=== PATIENT | male | born 1955 | race Caucasian/White ===

== ENCOUNTER 2017-01-18 18:43 | Emergency (ER) | payer OTHER ==
[~2017-01-18] VITALS: Ht 182.9 cm; Wt 110.0 kg
[~2017-01-18 18:43] MED LIST: LIPI10TA PO; PERC5TAB12 PO; TAMS0.4C67 PO
[2017-01-18 18:47] VITALS: BP 155/65; PULSE 85; RESP 16; TEMP 98.2; O2SAT 99
--- NOTE | 2017-01-18 18:56 | PD ---
HPI Chief Complaint: Laceration/Skin Injury Time Seen by Provider: 18:54 Travel History International Travel<30 days: No Contact w/Intl Traveler<30days: No Traveled to known affect area: No History of Present Illness HPI 61-year-old male who is right handed, presents to the emergency department for evaluation of a laceration sustained to the right third digit. Patient states he was closing the Moe or within the distal aspect of the right third digit was crashed sustaining a laceration on the volar surface. Patient reports moderate pain at the site. No alterations in her limitations range of motion. He is uncertain of his tetanus status. No other symptoms to report. PFSH Past Medical History Medical History: Denies Significant Hx Tetanus Vaccination: Unknown Social History Alcohol Use: No Tobacco Use: No Substance Use: No Allergies-Medications (Allergen,Severity, Reaction): Coded Allergies: No Known Allergies (Unverified , 01/18/17) Reported Meds & Prescriptions Reported Meds & Active Scripts Active Lortab (Hydrocodone-Acetaminophen) 5-325 Mg Tab 1 Tab PO Q6H PRN Ibuprofen 600 Mg Tab 600 Mg PO Q8H PRN Keflex (Cephalexin) 500 Mg Cap 500 Mg PO Q6H 5 Days Flomax (Tamsulosin HCl) 0.4 Mg Cap 0.4 Mg PO DAILY 7 Days Percocet 5-325 mg (Oxycodone/Acetaminophen) Oxycodone 5/325 Acetaminophen Tab 1- 2 Tab PO Q4H PRN Reported Lipitor 10 Mg Tab (Atorvastatin Calcium) 10 Mg Tab 10 Mg PO HS Review of Systems Except as stated in HPI: all other systems reviewed are Neg Physical Exam Narrative GENERAL: Well-nourished, well-developed male patient in no acute distress SKIN: Focused skin assessment warm/dry. 2 cm laceration across the volar aspect of the right third digit just proximal to the DIP. Ecchymosis of the distal aspect of the right third digit is noted with moderate edema. HEAD: Normocephalic. EYES: No scleral icterus. No injection or drainage. NECK: Supple, trachea midline. No JVD or lymphadenopathy. CARDIOVASCULAR: Regular rate and rhythm without murmurs, gallops, or rubs. RESPIRATORY: Breath sounds equal bilaterally. No accessory muscle use. MUSCULOSKELETAL: No cyanosis. Patient has full flexion-extension affected digit. Sensation intact distal affected digit. Cap refill within normal limits. BACK: Nontender without obvious deformity. No CVA tenderness. Data Data Last Documented VS Vital Signs Date Time Temp Pulse Resp B/P (MAP) Pulse Ox O2 Delivery O2 Flow Rate FiO2 01/18/17 20:11 01/18/17 18:47 98.2 85 16 99 Orders Orders Finger (Efp0eod) (01/18/17 ) Tetanus/Diphtheria Tox Adult (Tetanus/Di (01/18/17 19:00) Cephalexin (Keflex) (01/18/17 20:00) MDM Medical Decision Making Medical Screen Exam Complete: Yes Emergency Medical Condition: Yes Medical Record Reviewed: Yes Differential Diagnosis Fracture versus sprain versus contusion versus dislocation Narrative Course 61 year male presents to emergency department for evaluation of a crush injury to the right third digit. Patient sustained a laceration on the volar surface. X-ray imaging confirms a distal tuft fracture of the right third digit. Laceration is cleansed and approximated without difficulty. Patient is placed in a splint. He is encouraged follow-up with primary care provider and return immediately with any acute worsening symptoms. Procedures Procedure Narrative LACERATION LOCATION: Right third digit LENGTH: 2 cm] NUMBER OF STITCHES/YAZMIN: 4 sutures REPAIR: The area of the laceration was prepped with Betadine and sterilely draped. The laceration was infiltrated with 1% lidocaine. The wound was copiously irrigated and explored without evidence of foreign body, tendon injury or neurovascular injury. The wound was closed using 4-0 Prolene. This was a single layer repair. A sterile dressing was applied. The patient was advised to keep the dressing clean and dry. Patient tolerated the procedure well. Diagnosis Primary Impression: Finger laceration Qualified Codes: S61.312A - Laceration without foreign body of right middle finger with damage to nail, initial encounter Additional Impression: Open fracture of tuft of distal phalanx of finger Referrals: Hand Surgeon Primary Care Physician Patient Instructions: Finger Laceration (GEN), General Instructions Additional Instructions: Elevate to reduce pain and swelling Keep the area clean and dry Follow-up with a primary care provider Sutures are to be removed in 7-10 days. As can be done in the emergency department or at your primary care provider's office Return immediately to the emergency department with any acute worsening symptoms Med/Other Pt SpecificInfo: Prescription(s) given Scripts Hydrocodone-Acetaminophen (Lortab) 5-325 Mg Tab 1 TAB PO Q6H Y for PAIN GREATER THAN 6, #6 TAB 0 Refills Prov: Megan Gilbert 01/18/17 Ibuprofen (Ibuprofen) 600 Mg Tab 600 MG PO Q8H Y for PAIN, #30 TAB 0 Refills Prov: Megan Gilbert 01/18/17 Cephalexin (Keflex) 500 Mg Cap 500 MG PO Q6H for Infection for 5 Days, CAP 0 Refills Prov: Megan Gilbert 01/18/17 Disposition: 01 DISCHARGE HOME Condition: Stable Megan Gilbert Jan 18, 2017 18:56
[2017-01-18] MEDS ORDERED: TETANUS/DIPHTHERIA TOXOID ADULT 0.5 ML VIAL IM ONE (19:00)
--- NOTE | 2017-01-18 19:22 | RADRPT ---
EXAM DATE/TIME: 01/18/2017 19:07 [facility] COMPARISON: No previous studies available for comparison. INDICATIONS : Pain in distal third digit of right hand. MEDICAL HISTORY : None. SURGICAL HISTORY : None. ENCOUNTER: Initial ACUITY: 1 day PAIN SCORE: 2/10 LOCATION: Right upper extremity hand, third digit. FINDINGS: Examination of the third digit of the right hand demonstrates minimal fractured tuft of the distal ph alanx of the third digit. No dislocation. Soft tissue swelling. CONCLUSION: Minimal fracture tuft of distal phalanx third digit. Jose L Matos MD on January 18, 2017 at 19:19 Board Certified Radiologist. This report was verified electronically.
[2017-01-18] MEDS ORDERED: CEPH-460 PO (19:30)
[2017-01-18] MEDS ORDERED: HYDR-3533 PO (19:30)
[2017-01-18] MEDS ORDERED: IBUP-232 PO (19:30)
[2017-01-18] MEDS ORDERED: CEPHALEXIN MONOHYDRATE 500 MG CAP PO ONE (20:00)
== END 2017-01-18 20:14 | disposition home or self-care (01) ==
LOC: EDTENT 18:43
DX: S61.212A Laceration without foreign body of right middle finger without damage to nail, initial encounter (principal); W23.0XXA Caught, crushed, jammed, or pinched between moving objects, initial encounter; Z23 Encounter for immunization
CPT/HCPCS: 12001; 73140; 90471; 90714

== ENCOUNTER 2017-01-28 09:14 | Emergency (ER) | payer OTHER ==
[~2017-01-28] VITALS: Ht 182.9 cm; Wt 111.5 kg
[~2017-01-28 09:14] MED LIST changes: +CEPH-460 PO; +HYDR-3533 PO; +IBUP-232 PO
[2017-01-28 09:15] VITALS: BP 161/76; PULSE 86; RESP 15; TEMP 98.4; O2SAT 98
--- NOTE | 2017-01-28 09:32 | PD ---
HPI Chief Complaint: Wound/Suture/Staple Re-Check Time Seen by Provider: 09:28 Travel History International Travel<30 days: No Contact w/Intl Traveler<30days: No Traveled to known affect area: No History of Present Illness HPI Patient comes in requesting suture removal. Sutures were placed 10 days ago palmar surface of right hand third digit. Patient denies any complaints or concerns with these. States he's been taking all antibiotics as prescribed. He states he been trying to keep it dry and using Neosporin. Reports he is following all instructions previously given. Denies any other complaints or concerns. Denies anything making it better or worse. PFSH Past Medical History High Cholesterol: Yes Social History Alcohol Use: No Tobacco Use: No Substance Use: No Allergies-Medications (Allergen,Severity, Reaction): Coded Allergies: No Known Allergies (Unverified , 01/18/17) Reported Meds & Prescriptions Reported Meds & Active Scripts Active Lortab (Hydrocodone-Acetaminophen) 5-325 Mg Tab 1 Tab PO Q6H PRN Ibuprofen 600 Mg Tab 600 Mg PO Q8H PRN Keflex (Cephalexin) 500 Mg Cap 500 Mg PO Q6H 5 Days Flomax (Tamsulosin HCl) 0.4 Mg Cap 0.4 Mg PO DAILY 7 Days Percocet 5-325 mg (Oxycodone/Acetaminophen) Oxycodone 5/325 Acetaminophen Tab 1- 2 Tab PO Q4H PRN Reported Lipitor 10 Mg Tab (Atorvastatin Calcium) 10 Mg Tab 10 Mg PO HS Review of Systems Except as stated in HPI: all other systems reviewed are Neg Physical Exam Narrative GENERAL: Well-developed, overly nourished, in no acute distress, and non-ill appearing. SKIN: Focused skin assessment warm and dry. Well healing laceration noted over the palmar surface right hand third digit DIP joint. Nontender, afebrile, without drainage, and without crepitus. 4 sutures noted to be dry clean and intact. HEAD: Atraumatic. Normocephalic. EYES: Pupils equal and round. EOMI. No scleral icterus. No injection or drainage. ENT: No nasal bleeding or discharge. Mucous membranes pink and moist. NECK: Trachea midline. Supple. No nuclear rigidity. RESPIRATORY: No accessory muscle use. No respiratory distress. MUSCULOSKELETAL: No obvious deformities. No clubbing. No cyanosis. No edema. Full range of motion. NEUROLOGICAL: Awake and alert. No obvious cranial nerve deficits. Motor grossly within normal limits. Normal speech. PSYCHIATRIC: Appropriate mood and affect; insight and judgment normal. Data Data Last Documented VS Vital Signs Date Time Temp Pulse Resp B/P (MAP) Pulse Ox O2 Delivery O2 Flow Rate FiO2 01/28/17 09:40 01/28/17 09:15 98.4 86 15 98 MDM Medical Decision Making Medical Screen Exam Complete: Yes Emergency Medical Condition: No Differential Diagnosis Wound check, wound infection, suture removal, other Narrative Course Patient in no obvious distress upon re-evaluation. Any questions/concerns in reference to patient diagnosis/condition discussed and clarified prior to patient's discharge. Follow up with patient's primary physician or primary care clinic as needed. Instructed patient to return to ED immediately, if symptoms return/worsen. Pt showed understanding of above instructions. Further instructions and recommendations were detailed in discharge paperwork. Pt ambulated without difficulty out of ED at discharge. Procedures Procedure Narrative Verbal consent was obtained. 4 sutures were easily removed. There is no complications. Patient tolerated procedure well. Diagnosis Primary Impression: Encounter for removal of sutures Patient Instructions: General Instructions, Stitches Removal (ED) Additional Instructions: Follow-up with your primary care physician as needed. Keep wound dry and clean as possible using soap and water. Use Neosporin to promote healing. Do not soak or submerge wound. Return to the emergency department if symptoms get worse. Disposition: 01 DISCHARGE HOME Condition: Stable Fidencio Hackett Jan 28, 2017 09:32
== END 2017-01-28 09:41 | disposition home or self-care (01) ==
LOC: NEPK 09:14
DX: Z48.02 Encounter for removal of sutures (principal)
CPT/HCPCS: 99281

== ENCOUNTER → 2017-10-12 | Outpatient (CLI) | payer OTHER ==
[~2017-10-12] MED LIST changes: -CEPH-460 PO; -HYDR-3533 PO; -PERC5TAB12 PO; -TAMS0.4C67 PO
[2017-10-12 07:35] LABS: AUTOMATED NEUTROPHIL # 4.2 TH/MM3 (1.8-7.7); BASOPHIL % 0.6 % (0.0-2.0); EOSINOPHIL # 0.3 TH/MM3 (0-0.4); EOSINOPHIL % 3.6 % (0.0-4.0); HEMATOCRIT 48.1 % (39.0-51.0); HEMOGLOBIN 16.3 GM/DL (13.0-17.0); LYMPH % 27.2 % (9.0-44.0); LYMPHOCYTE # 1.9 TH/MM3 (1.0-4.8); MEAN CELL VOLUME 81.8 FL (80.0-100.0); MEAN CORPUSCULAR HEMOGLOBIN 27.7 PG (27.0-34.0); MEAN CORPUSCULAR HGB CONC 33.9 % (32.0-36.0); MEAN PLATELET VOLUME 8.8 FL (7.0-11.0); MONO % 8.2 % (0.0-8.0); MONOCYTE # 0.6 TH/MM3 (0-0.9); NEUT % 60.4 % (16.0-70.0); PLATELET COUNT 193 TH/MM3 (150-450); RED BLOOD COUNT 5.89 MIL/MM3 (4.50-5.90); RED CELL DISTRIBUTION WIDTH 13.5 % (11.6-17.2)
[2017-10-12 07:59] LABS: ALBUMIN 3.8 GM/DL (3.4-5.0); AST (GOT) 23 U/L (15-37); BICARBONATE 25.1 MEQ/L (21.0-32.0); BLOOD UREA NITROGEN 17 MG/DL (7-18); CALCIUM 8.7 MG/DL (8.5-10.1); CHLORIDE 108 MEQ/L (98-107); CREATININE 0.82 MG/DL (0.60-1.30); GLOMERULAR FILTRATION RATE 95 ML/MIN (>89); GLUCOSE,FASTING 103 MG/DL (74-99); SODIUM (NA) 142 MEQ/L (136-145)
[2017-10-12 08:00] LABS: ALT (GPT) 32 U/L (12-78); CHOLESTEROL 123 MG/DL (120-200)
[2017-10-12 08:10] LABS: ALKALINE PHOSPHATASE 85 U/L (45-117); CHOLESTEROL/ HDL RATIO 3.67 RATIO; HDL CHOLESTEROL 33.5 MG/DL (40.0-60.0); LDL CHOLESTEROL 76 MG/DL (0-99); TOTAL BILIRUBIN ADULT 0.6 MG/DL (0.2-1.0); TOTAL PROTEIN 7.1 GM/DL (6.4-8.2); TRIGLYCERIDES 66 MG/DL (42-150)
== END ==
LOC: CLAB 07:10
PROVIDERS: ATTEND Family Medicine
DX: E78.5 Hyperlipidemia, unspecified (principal); Z68.33 Body mass index [BMI] 33.0-33.9, adult
CPT/HCPCS: 36415; 80053; 80061; 84443; 85025